=== PATIENT | male | born 2000 | race Two or more races ===

== ENCOUNTER 2019-09-02 23:26 | Emergency (ER) | payer SELFPAY ==
[~2019-09-02] VITALS: Ht 172.7 cm; Wt 81.8 kg
[2019-09-03] MEDS ORDERED: LIDOCAINE 1% 10 ML VIAL ONE (00:41)
[2019-09-03] MEDS ORDERED: LIDOCAINE 1% 10 ML VIAL INJ ONE (00:45)
[2019-09-03] MEDS ORDERED: ACETAMINOPHEN 500 MG TABLET PO ONE (00:45)
[2019-09-03] MEDS ORDERED: IBUPROFEN 800 MG TABLET PO ONE (00:45)
[2019-09-03] MEDS ORDERED: PERTUSS(ACELL),DIPH,TET VAC/PF 0.5 ML VIAL IM ONE (00:45)
[2019-09-03 02:11] VITALS: BP 134/86
== END 2019-09-03 02:41 | disposition home or self-care (01) ==
LOC: EMS 23:28
DX: S01.01XA Laceration without foreign body of scalp, initial encounter (principal); S01.511A Laceration without foreign body of lip, initial encounter; F17.210 Nicotine dependence, cigarettes, uncomplicated; Y04.0XXA Assault by unarmed brawl or fight, initial encounter; Y93.89 Activity, other specified; Y92.89 Other specified places as the place of occurrence of the external cause; Y99.8 Other external cause status
CPT/HCPCS: 12001; 36415; 90471; 90715; 99284; G0480; J3490